=== PATIENT | female | born 1995 | race Caucasian/White ===

== ENCOUNTER 2019-12-14 16:09 | Outpatient (REF) | payer MEDICAID, SELFPAY | END 2019-12-14 16:10 | disposition home or self-care (01) | LOC: HO.SCI 16:09 | DX: J45.909 Unspecified asthma, uncomplicated (principal) ==

== ENCOUNTER 2020-01-05 09:00 | Outpatient (REF) | payer MEDICAID, SELFPAY | END 2020-01-05 09:01 | disposition home or self-care (01) | LOC: HO.RESP 09:00 | PROVIDERS: PCP Emergency Medicine; Visit Provider Emergency Medicine | DX: J45.20 Mild intermittent asthma, uncomplicated (principal) ==

== ENCOUNTER 2024-11-16 09:42 | Outpatient (REF) | payer MEDICAID, SELFPAY ==
--- OUTSIDE RECORDS SUMMARY | 2024-11-16 11:36 | XMS_ITS | Encounter Summary ---
Author Organization [employer] Address [address] [place] [address] [place] [address] Care Team Providers Care Dairy Husbandry Teacher Name Role Phone Irene Grimes MD Primary Care Pro vider Reason for Visit * Reason Onset Date Comments Med Refill 02/02/2024 Encounter Details Date Type Department Care Team ([facility] st Contact Info) Description 02/02/2024 Telephone [facility] MEDICINE [address] [place], [place] [phone] Irene Grimes MD [address] [place] [address] Med Refill Social History Tobacco Use Types Packs/Day Years Used Date Smoking Tobacco: Never Smokeless Tobacco: Never Alcohol Use Standard Drinks/Week Comments Never 0 (1 standard drink = 0.6 oz pur e alcohol) Depression Answer Date Recorded Patient Health Questionnaire-9 Score 6 10/19/2023 Patient Health Questionnaire-9 Score 6 10/19/2023 Last PHQ-9: Questionnaire Data Not on file 0 10/19/2023 Housing Stability Answer Date Recorded What is your housing situation today? I have hoda argueta 10/15/[address] you li ve. Do you have problems with any of the following? None of the above 10/15/2023 Food Insecurity Answer Date Recorded Within the past 12 months, y ou worried that your food would run out before you got money to buy more: Never True 10/15/2023 Within the past 12 months,th e food you bought just didn't last and you didn't have enough money to get more: Never True 10/2023 Transportation Answer Date Recorded In the past 12 months, has l ack of transportation kept you from medical appts, meetings, work or from getting things needed for daily living? No 10/15/2023 Utilities Answer Date Recorded In the past 12 months, has t he electric, gas, oil or water company threatened to shut off services in your home? No 10/15/2023 Depression Answer Date Recorded Patient Health Questionnaire-2 Score 1 10/19/2023 Internet Access Answer Date Recorded Internet Access Q1 Yes 11/09/2023 Internet Access Q2 Not on file 11/09/2023 Comments Unknown Sex and Gender Information Value Date Recorded Sex Assigned at Female 01/06/2022 10:37 AM EDT Legal Sex Female 10:37 AM EDT Gender Identity Female 01/06/2022 10:37 AM EDT Sexual Orientation Straight 01/06/2022 10 :37 AM EDT documented as of this encounter Miscellaneous Notes * Telephone Encounter - Aletha Terrazas LPN - 02/02/2024 9:27 AM EST Medication pended to PCP. * Telephone Encounter - Lauar Forrester - 02/02/2024 9:21 AM EST TC from pt requesting medication refill. Medications needing refill : albuterol (Ventolin HFA) 108 (90 Base) MCG/ACT inhaler To be sent to: [facility]/pharmacy [address] [place] [address] documented in this encounter Plan of Treatment Not on file documented as of this encounter Visit Diagnoses Not on filedocumented in this encounter Additional Health Concerns Assessment Noted Time PHQ-9 Depression Total Score: 6 10/19/19 24 4:27 PM EDT documented as of this encounter Care Teams Dairy Husbandry Teacher Relationship Specialty Start Date End Date Irene Grimes MD [address] [place] [id number] PCP - General Internal Medicine 09/16/22 documented as of this encounter
--- OUTSIDE RECORDS SUMMARY | 2024-11-16 11:36 | XMS_ITS | Encounter Summary ---
Author Organization [employer] Address [address] [place] [address] [place] [address] Care Team Providers Care Baseball Player Name Role Phone Irene Grimes MD Primary Care Pro vider Reason for Visit * Reason Onset Date Comments Med Refill 02/02/2024 Encounter Details Date Type Department Care Team ([facility] st Contact Info) Description 02/02/[address] [facility] MEDICINE [address] [place], [place] [phone] Irene Grimes MD 230 [place] [address] Mild intermittent asthma without complication Social History Tobacco Use Types Packs/Day Years [...] AM EDT documented as of this encounter Plan of Treatment Not on file documented as of this encounter Visit Diagnoses Diagnosis Mild intermittent asthma without complication documented in this encounter Additional Health Concerns Assessment Noted Time PHQ-9 Depression Total Score: 6 10/19/19 24 4:27 PM EDT documented as of this encounter Care Teams Baseball Player Relationship Specialty Start Date End Date Irene Grimes MD [address] [place] [address] PCP - General Internal Medicine 09/16/22 documented as of this encounter
--- OUTSIDE RECORDS SUMMARY | 2024-11-16 11:36 | XMS_ITS | Encounter Summary ---
Author Organization [employer] Address [address] [place] [address] 7 [place] [address] Care Team Providers Care Rag Cutting Machine Operator Name Role Phone Isha CabreraP Primary Care Provider Victorina Irene Hamilton MD Primary Care Pro vider Encounter Details Date Type Department Care Team (Late st Contact Info) Description 06/09/2022 Orders Only [facility] MED & PEDS [address] [place], [place] [phone] Aletha Terrazas LPN Social History Tobacco Use Types Packs/Day Years Used Date Smoking Tobacco: Never Assessed Comments Unknown Sex and Gender Information Value Date Recorded Sex Assigned at Female 01/06/2022 10:37 AM EDT Legal Sex Female 10:37 AM EDT Gender Identity Female 01/06/2022 10:37 AM EDT Sexual Orientation Straight 01/06/2022 10 :37 AM EDT documented as of this encounter Plan of Treatment Not on file documented as of this encounter Visit Diagnoses Not on filedocumented in this encounter Care Teams Rag Cutting Machine Operator Relationship Specialty Start Date End Date Isha Cabrera FNP PCP - General Family Medicine 10/31/21 09/15/22 Irene Grimes MD [address] [place] [address] PCP - General Internal Medicine 09/16/22 documented as of this encounter
--- OUTSIDE RECORDS SUMMARY | 2024-11-16 11:36 | XMS_ITS | Encounter Summary ---
Author Organization [employer] Address [address] [place] [address] 7 [place] [address] Care Team Providers Care Relations Manager Name Role Phone Irene Grimes MD Primary Care Pro vider Reason for Visit * Reason Onset Date Comments Returning Call 10/19/2023 Encounter Details Date Type Department Care Team ([facility] st Contact Info) Description 10/19/2023 Telephone [facility] MEDICINE [address] [place], [place] [phone] Irene Grimes MD [address] [place] [address] Returning Call Social History Tobacco Use Types Packs/Day Years [...] Recorded Patient Health Questionnaire-2 Score 1 10/19/2023 Comments Unknown Sex and Gender Information Value Date Recorded Sex Assigned at Female 01/06/2022 10:37 AM EDT Legal Sex Female 10:37 AM EDT Gender Identity Female 01/06/2022 10:37 AM EDT Sexual Orientation Straight 01/06/2022 10 :37 AM EDT documented as of this encounter Functional Status * Over the past 2 weeks, how often have you been bothered by any of the following problems? Question Answer Date of Assessment Author Little interest or pleasure in doing things Not at all 10/19/2023 4:27 PM EDT Parisa Anderson Feeling down, depressed, or hopeless Several days 10/19/2023 4:27 PM EDT Parisa Anderson Patient Health Questionnaire -2 Score 1 10/19/2023 4:27 PM EDT Parisa Anderson * Question Answer Date of Assessment Author Trouble falling or staying asleep, or sleeping too much Several days 10/19/2023 4:27 PM EDT Parisa Anderson Feeling tired or having zeferino le energy Several days 10/19/2023 4:27 PM EDT Parisa Anderson Poor appetite or overeating Nearly every day 4:27 PM EDT Parisa Anderson Feeling bad about yourself - or that you are a failure or have let yourself or your family down Not at all 10/19/2023 4:27 PM EDT Parisa Anderson Trouble concentrating on things, such as reading the newspaper or watching television Not at all 10/19/2023 4:27 PM EDT Parisa Anderson Moving or speaking so slowly that other people could have noticed? Or the opposite - being so fidgety or restless that you have been moving around a lot more than usual. Not at all 10/19/2023 4:27 PM EDT Parisa Anderson Thoughts that you would be better off or hurting yourself in some way Not at all 10/19/2023 4:27 PM EDT Parisa Anderson Patient Health Questionnaire -9 Score 6 10/19/2023 4:27 PM EDT Parisa Anderson documented as of this encounter Miscellaneous Notes * Telephone Encounter - Олег Schmidt - 10/19/2023 1:33 PM EDT Tc from pt stating they received a call but teletypewriter operator did not see any documentation. documented in this encounter Plan of Treatment Not on file documented as of this encounter Visit Diagnoses Not on filedocumented in this encounter Additional Health Concerns Assessment Noted Time PHQ-9 Depression Total Score: 6 10/19/19 24 4:27 PM EDT documented as of this encounter Care Teams Relations Manager Relationship Specialty Start Date End Date Irene Grimes MD [address] [place] [address] PCP - General Internal Medicine 09/16/22 documented as of this encounter
--- OUTSIDE RECORDS SUMMARY | 2024-11-16 11:37 | XMS_ITS | Encounter Summary ---
Author Organization [employer] Address [address] [place] [address] Care Team Providers Care Impregnating Helper Name Role Phone Irene Grimes MD Primary Care Pro vider Reason for Visit * Reason Comments Care Coordination [id number]/DAREK Barney- Follow up call Encounter Details Date Type Department Care Team (Latest Contact Info) Description 11/14/2024 Patient Outreach [facility] MEDICINE [address] [place] [address] Irene Grimes MD [address] [place] [address] Care Coordination (DAREK Bright- Follow up call) Social History Tobacco Use Types Packs/Day Years Used Date Smoking Tobacco: Never Passive Smoke Exposure: Never Smokeless Tobacco: Never Alcohol Use Standard Drinks/Week Comments Never 0 (1 standard drink = 0.6 oz pur e alcohol) Depression Answer Date Recorded Patient Health Questionnaire-9 Score 0 08/09/2024 Patient Health Questionnaire-9 Score 0 08/09/2024 Last PHQ-9: Questionnaire Data Not on file 0 08/09/2024 Housing Stability Answer Date Recorded What is your housing situation today? I have hoda ellie 10/15/[address] you li [...] Answer Date Recorded Patient Health Questionnaire-2 Score 0 08/09/2024 Internet Access Answer Date Recorded Internet Access Q1 Yes 11/09/2023 Internet Access Q2 Not on file 11/09/2023 Estimated Date of Delivery Comme nts Yes 03/09/2025 Based on [facility] Sex and Gender Information Value Date Recorded Sex Assigned at Female 01/06/2022 10:37 AM EDT Legal Sex Female 10:37 AM EDT Gender Identity Female 01/06/2022 10:37 AM EDT Sexual Orientation Straight 01/06/2022 10 :37 AM EDT documented as of this encounter Progress Notes * Linnette Urena - 11/14/2024 3:05 PM EDT CHW Linnette Urena, placed outbound call to patient's parent introducing herself calling from [facility]. Patient's name, and address confirmed. CHW followed up on SDOH needs. No SDOHneeds at this time. No further questions or concerns. CHW reinforced direct contact information for any additional questions or concerns and extended clinic hours on Mondays and Wednesdays, and Walk-In Urgent Care Located in [facility]. Patient provided with after-hours line for [facility], , which offer night time triage service and option to transfer to manager application development provider if needed. Patient verbalizes understanding, and able to repeat back to lead technical writer. A follow up call will be placed within 10 days, patient agrees with plan. documented in this encounter Plan of Treatment Not on file documented as of this encounter Visit Diagnoses Not on filedocumented in this encounter Additional Health Concerns Assessment Noted Time PHQ-9 Depression Total Score: 0 08/10/19 25 10:52 AM EDT documented as of this encounter Care Teams Impregnating Helper Relationship Specialty Start Date End Date Irene Grimes MD [address] [place] [id number] PCP - General Internal Medicine 09/16/22 documented as of this encounter
--- OUTSIDE RECORDS SUMMARY | 2024-11-16 11:37 | XMS_ITS ---
Author Organization [employer] Address [address] [place] [address] 7 [place] [address] Care Team Providers Care Synchronizer Name Role Phone Irene Grimes MD Primary Care Pro vider C3 CM High Risk Maternity Status:Enrolled (Active) Start date:07/14/2024 Enrollment date:08/09/2024 Enrollment reason:ADT Feed Overview ADT-[facility] ED 07/13/24-less than 8 weeks gestation Case Team Name Relationship Phone Mireille Stevens(Responsible Staff) Registered Nurse [phone] Continued Care and Services Coordination
--- OUTSIDE RECORDS SUMMARY | 2024-11-16 11:37 | XMS_ITS | Encounter Summary ---
Author Organization [employer] Address [address] [place] [address] [place] [address] Care Team Providers Care Clay Processing Labourer Name Role Phone Irene Grimes MD Primary Care Pro vider Reason for Visit * Reason Onset Date Comments Med Refill 05/23/2024 Encounter Details Date Type Department Care Team ([facility] st Contact Info) Description 05/23/2024 Refill [facility] MEDICINE [address] [place], [place] [phone] Irene Grimes MD [address] [place] [address] Mild intermittent asthma without complication Social History [...] your housing situation today? I have hoda sing 10/15/[address] you li [...] documented as of this encounter Care Teams Clay Processing Labourer Relationship Specialty Start Date End Date Irene Grimes MD [address] [place] [id number] PCP - General Internal Medicine 09/16/22 documented as of this encounter
--- OUTSIDE RECORDS SUMMARY | 2024-11-16 11:37 | XMS_ITS | Encounter Summary ---
Author Organization [employer] Address [address] [facility] 7[address] [place] [address] Care Team Providers Care Diversified Crops Farmer Name Role Phone Irene Grimes MD Primary Care Pro vider Encounter Details Date Type Department Care Team ([facility] st Contact Info) Description 07/01/2024 Orders Only [facility] MED & PEDS [address] [place], [place] [phone] ProviderFly MD Social History Tobacco Use Types Packs/Day Years [...] is your housing situation today? I have hodacristian argueta 10/15/[address] you [...] t he electric, gas, oil or water [employer] threatened to shut off services in your [...] on file documented as of this encounter Procedures Procedure Name Priority Date/Time Associated Diagnosis Comments HM PAP/HPV Routine 12/22/2022 3:08 PM EDT documented in this encounter Results * HM PAP/HPV (12/22/2022 3:08 PM EDT) Historical Provider HEALTH MAINTENANCE Final Result documented in this encounter Visit Diagnoses Not on filedocumented in this encounter Additional Health Concerns Assessment Noted Time PHQ-9 Depression Total Score: 6 10/19/19 24 4:27 PM EDT documented as of this encounter Care Teams Diversified Crops Farmer Relationship Specialty Start Date End Date Irene Grimes MD [address] [place] [address] PCP - General Internal Medicine 09/16/22 documented as of this encounter
--- OUTSIDE RECORDS SUMMARY | 2024-11-16 11:37 | XMS_ITS | Clinical Summary ---
Author Organization [employer] Address [address] [place] [address] 7t [place] [address] Care Team Providers Care Powertrain Control Systems Engineer Name Role Phone Irene Grimes MD Primary Care Pro vider Allergies No known active allergies Medications * This document contains information received from the source organization and may not represent a complete record from that organization. medroxyPROGESTERo ne (Depo-Provera) 150 MG/ML injection Inject 150 mg into the muscle every 3 (three) months. Active Vit-Fe Fumarate-FA ( VITAMIN PO) Take by mouth. Active levothyroxine (Synthroid, Levoxyl) 125 MCG tablet TAKE 2 TABLETS BY MOUTH EVERY DAY 180 tablet 5 Active albuterol (Ventolin HFA) 108 (90 Base) MCG/ACT inhalerIndication s:Mild intermittent asthma without complication INHALE 2 PUFFS BY MOUTH EVERY 4 TO 6 HOURS IF NEEDED FOR ASTHMA 18 g 2 5 Active Active Problems Problem Noted Date Diagnosed Date Routine physical examination 03/22/2024 Post-traumatic stress disorder, unspecified 10/07 History of gestational hypertension 10/15/2023 Obesity 10/15/2023 Health care maintenance 10/15/2023 depression 10/15/2023 Cellulitis 10/15/2023 Abscess 10/15/2023 Hypothyroidism 08/27/2022 Assessment & Plan (03/22/2024 1:34 PM EST): Pt reports feels well overall, has no concerns or complaints, has been compliant with Levothyroxine Lab Results Component Value Date TSH 65.01 (H) 10/15/2023 On Levothyroxine 125 mcg po daily Repeat TFTs Iron deficiency anemia 08/27/2022 Mild persistent asthma 07/30/2021 Prediabetes 06/19/2021 Estimated Date of Delivery Comme nts Yes 03/09/2025 Based on [facility] JANNET, [facility] Encounters Date Type Department Care Team Description 11/14/2024 Patient Outreach [address] [phone] Irene Grimes MD Care Coordination ([facility]/DARE[facility] Corona- Follow up call) 11/10/[address] [address] Irene Grimes MD Care Management ([facility] TC #1-lvm) 10/24/2024 Patient Outreach [address] [address] Irene Grimes MD Care Coordination ([facility]#1- Follow up call-LVM) 10/12/2024 Patient Outreach [address] [address] Irene Grimes MD Care Management ([facility] follow up call) 10/10/2024 Patient Outreach [address] [address] Irene Grimes MD Care Coordination ([facility]- Follow up call) 09/27/2024 Patient Outreach [address] [address] Irene Grimes MD Care Coordination ([facility]#1- Follow up call-LVM) 09/21/[address] [address] Irene Grimes MD call back needed 09/20/2024 Patient Outreach [address] [address] Irene Grimes MD 09/20/2024 Patient Outreach [address] [address] Irene rGimes MD Care Management ([facility] follow up call) 09/20/2024 Patient Outreach [address] [address] Irene Grimes MD Care Coordination ([facility] Linnette Urena, In person meet-Low income [facility] applications) 09/17/2024 Refill [facility] MED[facility]INE [address] [place] [phone] Francis Mccollum MD Mild intermittent asthma without complication 09/08/2024 Patient Outreach [address] [address] Irene Grimes MD Care Coordination ([facility]/Morgan U[facility] TC- Follow up call) 08/24/2024 Patient Outreach [address] [address] Irene Grimes MD Care Management ([facility] TC #1-lvm) 08/23/2024 Patient Outreach [address] [address] Irene Grimes MD Care Coordination ([facility]/Morgan Urena TC#1-Follow up [facility]-LVM) 08/22/[address] [address] Irene Grimes MD F/U APPT from Last 3 Months Immunizations Immunization Administration Dates Next Due Influenza, IIV3, injectable 01/20/2023 Tdap 04/10/2023 Family History Medical History Relation Name Comments unspecified heart condition , DM2 Father hypothyroidism ,asthma,DM2 Maternal Grandmother Relation Name Status Comments Father Maternal Grandmother Social History Tobacco Use Types Packs/Day Years Used Date Smoking Tobacco: Never Passive Smoke Exposure: Never Smokeless Tobacco: Never Tobacco Cessation:Counseling Given: Not Answered Alcohol Use Standard Drinks/Week Comments Never 0 [...] Comme nts Yes 03/09/2025 Based on [facility], [facility] Sex and Gender Information Value Date Recorded Sex Assigned at Female 01/06/2022 10:37 AM EDT Legal Sex Female 10:37 AM EDT Gender Identity Female 01/06/2022 10:37 AM EDT Sexual Orientation Straight 01/06/2022 10 :37 AM EDT Last Filed Vital Signs Vital Sign Reading Time Taken Comments Blood Pressure 126/84 10/15/2023 10:50 AM EDT Pulse 100 03/22/2024 1:08 PM EST Temperature 36.2 C (97.1 F) 03/22/2024 1:08 PM EST Respiratory Rate 20 03/22/2024 1:08 PM EST Oxygen Saturation 98% 03/22/2024 1:08 PM EST Inhaled Oxygen Concentration - - Weight 142 kg (313 lb 12.8 oz) 03/22/2024 1:08 P M EST Height 157.5 cm (5' 2 ) 03/22/2024 1:08 PM EST Body Mass Index 57.39 03/22/2024 1:08 PM EST Plan of Treatment Health Maintenance Due Date Last Done Comments Family Planning (PISQ) 11/27/2010 HPV Vaccines (1 - 3-dose series) 11/27/2010 Hepatitis B Vaccines (1 of 3 - 19+ 3-dose series) 11/27/2014 Pneumococcal Vaccine: Pediatrics (0 to 5 Years) and At-Risk Patients (6 to 49) Years (1 of 2 - PCV) 11/27/2014 Diabetes: Hemoglobin A1C 10/14/2024 024, 06/18/2021, 10/18/2019 COVID-19 Vaccine (1 - 2023-2 5 season) 2024 Influenza Vaccine (#1) 2024 01/20/2023 RSV Patients and Patients Aged 60 years or older (1 - Risk 1-dose series) 01/12/2025 Alcohol/Substance Use Screening 03/22/2025 03/22/2024 Tobacco Screening 03/22/2025 03/22/2024 Disability Screening 07/06/2025 07/06/2024 SDOH Screening 07/26/2025 07/26/2024 Depression Screening 08/09/2025 08/09/2024, 10/19/2023 Pap Smear 12/22/2025 12/22/2022 Lipid Panel 10/14/2028 10/15/2023, 06/18/2021, 10/18/2019 DTaP/Tdap/Td Vaccines (2 - T d or Tdap) 04/10/2033 04/10/2023 Zoster Vaccines (1 of 2) 11/27/2045 HIV Screening Completed 10/15/2023, 06/18/2021 Hepatitis C Screening Completed 10/15/2023 , 06/18/2021 HIB Vaccines Aged Out No longer eligi ble based on patient's age to complete this topic Hepatitis A Vaccines Aged Out No long er eligible based on patient's age to complete this topic IPV Vaccines Aged Out No longer eligi ble based on patient's age to complete this topic Meningococcal B Vaccine Aged Out No l onger eligible based on patient's age to complete this topic Meningococcal Vaccine Aged Out No christi gordon eligible based on patient's age to complete this topic RSV under 20 months Aged Out No longe r eligible based on patient's age to complete this topic Rotavirus Vaccines Aged Out No longer eligible based on patient's age to complete this topic Procedures Procedure Name Priority Date/Time Associated Diagnosis Comments HEPATITIS C AB W/REFL TO HCV RNA, QN, PCR Routine 10/15/2023 12:10 PM EDT Annual physical exam HIV 1/2 ANTIGEN/ANTIBODY, FOURTH GENERATION W/RFL Routine 10/15/2023 12:10 PM EDT Annual physical exam HEMOGLOBIN A1C Routine 10/15/2023 12:10 PM EDT Annual physical exam LIPID PANEL, STANDARD Routine 10/15/2023 12:10 PM EDT Annual physical exam HM PAP/HPV Routine 12/22/2022 3:08 PM EDT from Last 3 Months or Most Recently Relevant to Health Maintenance Results * Hepatitis C Antibody with Reflex to HCV, RNA, Quantitative, Real-Time PCR (10/15/2023 12:10 PM EDT) Hepatitis C Antibody Nonreactive Nonreactive [facility] Comment:Antibodies to HCV no t detected; does not exclude early acuteHCV infection. Blood Venous blood specimen / Unknown 10/15/2023 12:10 PM EDT 10/15/2023 1:13 PM EDT us Irene Rivas MD LAB BLOOD ORDERAB LES Final Result [facility] [address] [place] [phone] * HIV-1/2 Antigen and Antibodies, Fourth Generation, with Reflexes (10/15/2023 12:10 PM EDT) HIV AB/AG Nonreactive Nonreactive [facility] Comment:HIV-1 p24 Ag and/or HIV-1/HIV-2 Ab not detected.A test result that is nonreactive does not exclude thepossibility of exposure to or infection with HIV-1 and/orHIV-2. Nonreactive results in this assay for individualswith prior exposure to HIV-1 and/or HIV-2 may be due toantigen and antibody levels that are below the limit ofdetection of this assay.The Companion [employer] HIV Ag/Ab Combo assay result andsupplemental assay results should be interpreted inconjunction with the patient's clinical presentation,history and other laboratory results. If the results areinconsistent with clinical evidence, additional testing issuggested to confirm the result. Blood Venous blood specimen / Unknown 10/15/2023 12:10 PM EDT 10/15/2023 1:13 PM EDT Irene Rivas MD LAB BLOOD ORDERAB LES Final Result Performing Organization Address [facility] Co de Phone Number [facility] [address] [place] [phone] * Hemoglobin A1c (10/15/2023 12:10 PM EDT) Hemoglobin A1c 5.6 <6.0 % [facility] Comment:Hemoglobin A1C Refer ence Range Adults: 4.8 - 6.0 % Non diabetic: < 6.0 % Goal: < 7.0 %Additional Action Suggested: > 8.0 %Note: Hemoglobin A1c results are invalid for patients with abnormal amounts of HbF. Blood transfusions may impact the HbA1c concentration in the patient sample. Estimated Average Glucose 114 mg/dL [facility] Comment:eAG = Estimated ave rage glucose which is %A1C expressed asaverage glucose, using the formula of the D5V-LcdnuqnSaqepoi Glucose study (ADAG), Diabetes Care, Vol.31,#8,Oct. 2007 Blood Venous blood specimen / Unknown 10/15/2023 12:10 PM EDT 10/15/2023 1:13 PM EDT Irene Rivas MD LAB BLOOD ORDERAB LES Final Result Performing Organization Address [facility] Co de Phone Number [facility] [address] [place] [phone] [phone] * (ABNORMAL) Lipid Panel, Standard (10/15/2023 12:10 PM EDT) Triglycerides 86 <150 mg/dL [facility] Comment:Desirable Triglyceri de: less than 150 mg/dLBorderline High Triglyceride 150-199 mg/dLHigh Triglyceride: 200-499 mg/dLVery High Triglyceride: greater than or equal to 5OO mg/dL Cholesterol 202(H) <200 mg/dL [facility] Comment:Desirable Cholestero l: less than 200 mg/dLBorderline High Cholesterol: 200-239 mg/dLHigh Cholesterol: greater than 239 mg/dL LDL Cholesterol Calculated 136(H) <100 mg/dL [facility] Comment:Desirable LDL: less than 100 mg/dLNear Optimal/Above Optimal LDL: 110- 129 mg/dLBorderline High LDL: 130-159 mg/dLHigh LDL: 160-189 mg/dLVery High LDL: greater than or equal to 190 mg/dL HDL Cholesterol 49 >40 mg/dL [facility] Comment:Desirable HDL: great er than 40 mg/dL Note: This HDL assay may give artificially low results in patients with liver disease. Blood Venous blood specimen / Unknown 10/15/2023 12:10 PM EDT 10/15/2023 1:12 PM EDT Irene Rivas MD LAB BLOOD ORDERAB LES Final Result [facility] [address] [place] [phone] * HM PAP/HPV (12/22/2022 3:08 PM EDT) Historical Provider HEALTH MAINTENANCE Final Result from Last 3 Months or Most Recently Relevant to Health Maintenance [place] [address] [place] [address] STANDARD Care Teams Powertrain Control Systems Engineer Relationship Specialty Start Date End Date Irene Grimes MD [address] [place] [phone] PCP - General Internal Medicine 09/16/22
--- OUTSIDE RECORDS SUMMARY | 2024-11-16 11:37 | XMS_ITS | Encounter Summary ---
Author Organization [employer] Address [address] [place] [address] [place] [address] Care Team Providers Care Charge Master Analyst Name Role Phone Irene Grimes MD Primary Care Pro vider Reason for Visit * Reason Onset Date Comments Med Refill 05/17/2024 Encounter Details Date Type Department Care Team ([facility] st Contact Info) Description 05/17/2024 Refill [facility] [address] [place], [place] [phone] Irene Grimes MD [address] [place] [address] Mild intermittent asthma without complication Social History [...] documented as of this encounter Care Teams Charge Master Analyst Relationship Specialty Start Date End Date Irene Grimes MD [address] [place] [phone] PCP - General Internal Medicine 09/16/22 documented as of this encounter
--- OUTSIDE RECORDS SUMMARY | 2024-11-16 11:37 | XMS_ITS | Encounter Summary ---
Author Organization [employer] Address [address] [place] [address] 7t [place] [address] Care Team Providers Care Manager Sustainability Name Role Phone Irene Grimes MD Primary Care Pro vider Reason for Visit * Reason Onset Date Comments Med Refill 05/26/2024 Encounter Details Date Type Department Care Team ([facility] st Contact Info) Description 05/26/2024 Refill [facility] [address] [place], [place] [phone] Francis Mccollum MD [address] [place] [address] Social History Tobacco Use Types Packs/Day Years [...] documented as of this encounter Care Teams Manager Sustainability Relationship Specialty Start Date End Date Irene Grimes MD [address] [place] [phone] PCP - General Internal Medicine 09/16/22 documented as of this encounter
--- OUTSIDE RECORDS SUMMARY | 2024-11-16 11:37 | XMS_ITS ---
Author Organization [employer] Address [address] [place] [address] 7 [place] [address] Care Team Providers Care Mail Messenger Contractor Name Role Phone Irene Grimes MD Primary Care Pro vider C3 CM Maternal Advocate Status:Enrolled (Active) Start date:07/14/2024 Enrollment date:08/09/2024 Enrollment reason:ADT Feed Overview ADT-[facility] ED 07/13/24-less than 8 weeks gestation Case Team Name Relationship Phone Linnette Urena(Responsible Staff) [phone] Continued Care and Services Coordination
--- OUTSIDE RECORDS SUMMARY | 2024-11-16 11:37 | XMS_ITS | Encounter Summary ---
Author Organization [employer] Address [address] [place] [address] [place] [address] Care Team Providers Care Pocket Flap Creasing Machine Operator Name Role Phone Isha CabreraP Primary Care Provider Victorina Irene Hamilton MD Primary Care Pro vider Encounter Details Date Type Department Care Team (Late st Contact Info) Description 03/31/2022 Orders Only [facility] MED[facility]INE [address] [place], [place] [phone] Mine Diaz LPN Social History Tobacco Use Types Packs/Day [...] on filedocumented in this encounter Care Teams Pocket Flap Creasing Machine Operator Relationship Specialty Start Date End Date Isha Cabrera FNP PCP - General Family Medicine 10/31/21 09/15/22 Irene Grimes MD [address] [place], [place] [phone] PCP - General Internal Medicine 09/16/22 documented as of this encounter
--- OUTSIDE RECORDS SUMMARY | 2024-11-16 11:37 | XMS_ITS | Encounter Summary ---
Author Organization [employer] Address [address] [place] [address] 7t [place] [address] Care Team Providers Care Informaticist Name Role Phone Irene Grimes MD Primary Care Pro vider Reason for Visit * Reason Onset Date Comments Med Refill 05/23/2024 Encounter Details Date Type Department Care Team ([facility] st Contact Info) Description 05/23/2024 Refill [facility] [address] [place], [place] [phone] Francis Mccollum MD [address] [place] [address] Social History Tobacco Use Types Packs/Day Years [...] documented as of this encounter Care Teams Informaticist Relationship Specialty Start Date End Date Irene Grimes MD [address] [place] [phone] PCP - General Internal Medicine 09/16/22 documented as of this encounter
--- OUTSIDE RECORDS SUMMARY | 2024-11-16 11:37 | XMS_ITS | Encounter Summary ---
Author Organization [employer] Address [address] [place] [address] [place] [address] Care Team Providers Care Stranner Name Role Phone Irene Grimes MD Primary Care Pro vider Reason for Visit * Reason Onset Date Comments Med Refill 04/21/2024 Encounter Details Date Type Department Care Team ([facility] st Contact Info) Description 04/21/2024 Refill [facility]INE [address] [place], [place] [phone] Irene Grimes MD [address] [place] [address] Mild intermittent asthma without complication Social History [...] documented as of this encounter Care Teams Stranner Relationship Specialty Start Date End Date Irene Grimes MD [address] [place] [phone] PCP - General Internal Medicine 09/16/22 documented as of this encounter
[2024-11-16 13:12] LABS: Free T4 (Free Thyroxine) 0.82 ng/dL (0.71-1.85); Thyroid Stimulating Hormone 3.04 uIU/mL (0.32-4.0)
== END 2024-11-16 09:43 | disposition home or self-care (01) ==
LOC: HO.HHCL 09:42
PROVIDERS: PCP Student in an Organized Health Care Education/Training Program; Visit Provider Student in an Organized Health Care Education/Training Program
DX: Z13.89 Encounter for screening for other disorder (principal)
CPT/HCPCS: 36415; 84439; 84443